=== PATIENT | male | born 1935 | race Caucasian/White ===

== ENCOUNTER 2020-10-08 16:08 | Emergency (ER) | payer MEDICARE ==
[~2020-10-08] VITALS: Ht 177.8 cm; Wt 98.6 kg
--- NOTE | 2020-10-08 16:27 | NUR ---
TO GLEN FROM LOBBY
== END 2020-10-08 18:57 | disposition home or self-care (01) ==
LOC: ED 17:30
DX: R05 Cough (principal); Z20.828 Contact with and (suspected) exposure to other viral communicable diseases; J44.9 Chronic obstructive pulmonary disease, unspecified
CPT/HCPCS: 87635; 99283